=== PATIENT | male | born 1975 | race Hispanic/Latino ===

== ENCOUNTER 2017-07-11 06:20 | Day surgery (SDC) | payer OTHER ==
[2017-07-10 15:03] LABS: BASOPHILS % (AUTO) 0.8 % (0.0-5.0); EOSINOPHILS % (AUTO) 2.1 % (0.0-8.0); HEMATOCRIT 43.2 % (42-54); LYMPHOCYTES % (AUTO) 32.5 % (21.0-51.0); MEAN CORPUSCULAR HEMOGLOBIN 30.5 pg (27.0-33.0); MEAN CORPUSCULAR HGB CONC 33.8 g/dL (32.0-36.0); MEAN CORPUSCULAR VOLUME 90.1 fL (79-99); MONOCYTES % (AUTO) 9.8 % (3.0-13.0); NEUTROPHILS % (AUTO) 54.8 % (40.0-77.0); PLATELET COUNT (AUTO) 280 K/uL (130-400); RED BLOOD CELL COUNT(AUTO) 4.79 MIL/uL (4.50-6.20); RED CELL DISTRIBUTION WIDTH 13.7 % (11.0-15.5); WHITE BLOOD COUNT (AUTO) 8.2 K/uL (4.8-10.8)
[2017-07-10 15:16] VITALS: BP 151/93
[2017-07-10 15:17] LABS: POTASSIUM 4.1 mmol/L (3.5-5.1)
[2017-07-11] VITALS (15 sets, daily range): BP systolic 98–140; BP diastolic 49–83
[~2017-07-11] VITALS: Ht 177.8 cm; Wt 98.3 kg
[2017-07-11] MEDS: CEFAZOLIN SODIUM 1 GM VIAL IVP SCH ×2 (06:00→11:15)
[2017-07-11] MEDS ORDERED: LACTATED RINGERS 1000ML 1,000 ML IV ONE (06:44)
[2017-07-11] MEDS ORDERED: DEXAMETHASONE SOD PHOSPHATE 10MG/ML 1ML VIAL ONE (07:50)
[2017-07-11] MEDS ORDERED: LIDOCAINE PF 2% 5ML ABBOJECT ONE (07:50)
[2017-07-11] MEDS ORDERED: PROPOFOL 10 MG/ML 20ML VIAL IV ONE (07:50)
[2017-07-11] MEDS ORDERED: MIDAZOLAM HCL 1 MG/ML 2ML VIAL ONE (07:50)
[2017-07-11] MEDS ORDERED: FENTANYL CITRATE PF 50 MCG/1 ML 2ML VIAL ONE ×2 (07:50→11:15)
[2017-07-11] MEDS ORDERED: SUCCINYLCHOLINE CHLORIDE 20 MG/ML 10 ML VIAL ONE (07:56)
[2017-07-11] MEDS ORDERED: PHENYLEPHRINE HCL 10 MG/ML 1ML VIAL IV ONE (11:21)
[2017-07-11] MEDS ORDERED: TYL3 PO (11:53)
[2017-07-11] MEDS ORDERED: NAPR-1023 PO (11:53)
[2017-07-11] MEDS ORDERED: CEPH500B PO (11:53)
[2017-07-11] MEDS ORDERED: MEPERIDINE-PF 50 MG/ML SYG ONE (12:08)
[2017-07-11] MEDS ORDERED: KETOROLAC TROMETHAMINE 30MG/ML ONE (12:32)
== END 2017-07-11 13:45 | disposition home or self-care (01) ==
LOC: DAH 06:20
PROVIDERS: ATTEND Orthopaedic Surgery
DX: S83.241D Other tear of medial meniscus, current injury, right knee, subsequent encounter (principal); S82.831D Other fracture of upper and lower end of right fibula, subsequent encounter for closed fracture with routine healing; M94.261 Chondromalacia, right knee; Z68.30 Body mass index [BMI] 30.0-30.9, adult; Z79.899 Other long term (current) drug therapy
CPT/HCPCS: 29870; 36415; 80048; 85025; A4218; A4606; A4649 ×2; A4930; A6223; J0330; J0690; J1100; J1885; J2001; J2175; J2250; J2370; J2704; J3010 ×2; J7120 ×2